=== PATIENT | female | born 1995 | race Caucasian/White ===

== ENCOUNTER 2017-09-25 18:44 | Emergency (ER) | payer OTHER ==
[2017-09-25] MEDS ORDERED: Ondansetron ODT 4 MG TAB ONE (19:43)
[2017-09-25 20:17] LABS: Hemoglobin 13.5 g/dL (12.0-16.0); Mean Corpuscular HGB CONC 34.1 g/dL (32.0-36.0); Mean Corpuscular Hemoglobin 35.8 pg (27.0-31.0); Mean Platelet Volume 9.3 fL (7.4-10.4); Platelet Count 100 thou/uL (130-400); RBC Distribution Width 14.2 % (11.5-14.5); Red Blood Cell (RBC) Count 3.77 mill/uL (4.20-5.40); White Blood Cell (WBC) Count 4.8 thou/uL (4.8-10.8)
[2017-09-25 20:23] LABS: Anion Gap 16 mmol/L (10-20); BUN (Urea Nitrogen) 9 mg/dL (7.0-18.7); Calc. Creatinine Clearance 0 mL/min (70-130); Calcium 10.4 mg/dL (7.8-10.44); Carbon Dioxide 26 mmol/L (22-29); Chloride 102 mmol/L (98-107); Estimated GFR-MDRD Greater than 90; Glucose 109 mg/dL (70-105); Sodium 140 mmol/L (136-145)
[2017-09-25 20:34] LABS: #Lymphocytes 0.8 thou/uL (1.20-3.40); #Monocytes 0.2 thou/uL (0.11-0.59); #Neutrophils 3.8 thou/uL (1.40-6.50); %Basophils 0.7 % (0.0-1.0); %Eosinophils 0.1 % (0.0-10.0); %Lymphocytes 16.6 % (21.0-51.0); %Monocytes 4.1 % (0.0-10.0); %Neutrophils 78.4 % (42.0-75.0); MDiff Complete? YES; Macrocytosis SLIGHT = 6-15 cells (100X) (0-5/hpf); PLT Morphology Comment Appears Decreased
[2017-09-25] MEDS ORDERED: Albuterol Sulfate 1.25 MG/3 ML NEB ONE ×2 (20:48→20:49)
[2017-09-25] MEDS ORDERED: Lorazepam 2 MG/ML VIAL ONE (21:00)
--- NOTE | 2017-09-25 23:35 | RAD ---
PORTABLE CHEST 09/25/17 An AP portable film at 2100 is compared with a 07/18/15 study. The patient is turned significantly which partially obscures portions of the lungs. There is some cary ear streaking in the left base that is most likely atelectasis. In the right breast there seems to be a little more density than usual. I cannot exclude an infiltrate here. The heart is probably normal in size given the body habitus and obliquity of the film. A tracheostomy tube is in place as usual. IMPRESSION: 1. Linear streaking left base, most likely atelectasis. 2. Question of extra increased density in right base. Cannot exclude a developing infiltrate on the right side, so the right lung is not seen optimally due to positioning. Code T POS: HOME
--- NOTE | 2017-09-25 23:37 | RAD ---
ABDOMEN ONE VIEW 09/25/17 A single film is provided. There is a very large amount of fecal material in the colon, especially th e left colon. While there is some mild gaseous distention of the splenic flexure, overall, the bowel does not appear overtly obstructed. A large density is seen in and just above the pelvis and to the right of midline. This might be a dis tended urinary bladder. Other studies would be needed to confirm it. 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 IMPRESSION: 1. Significant constipation. 2. Possible distention of the urinary bladder. POS: HOME
== END 2017-09-26 00:20 | disposition short-term general hospital (02) ==
LOC: BURERS 18:44
DX: G40.919 Epilepsy, unspecified, intractable, without status epilepticus (principal); Z79.899 Other long term (current) drug therapy
CPT/HCPCS: 71010; 74000; 80048; 80185; 85025; 96361; 96374; J2060; Q0162

== ENCOUNTER 2019-07-23 09:37 | Emergency (ER) | payer OTHER ==
[2019-07-23] MEDS ORDERED: Albuterol Sulfate 2.5 mg/3 ml Neb ONE (10:00)
[2019-07-23 10:19] LABS: #Eosinphils 0.3 thou/uL (0.0-0.7); #Lymphocytes 0.4 thou/uL (1.20-3.40); #Monocytes 0.4 thou/uL (0.11-0.59); #Neutrophils 4.7 thou/uL (1.40-6.50); %Basophils 0.5 % (0.0-1.0); %Eosinophils 5.3 % (0.0-10.0); %Lymphocytes 7.6 % (21.0-51.0); %Neutrophils 80.6 % (42.0-75.0); Hemoglobin 12.9 g/dL (12.0-16.0); Mean Corpuscular HGB CONC 33.5 g/dL (32.0-36.0); Mean Corpuscular Hemoglobin 32.9 pg (27.0-31.0); Mean Corpuscular Volume 98.4 fL (78.0-98.0); Mean Platelet Volume 7.1 fL (7.4-10.4); Platelet Count 127 thou/uL (130-400); RBC Distribution Width 14.5 % (11.5-14.5); Red Blood Cell (RBC) Count 3.91 mill/uL (4.20-5.40); White Blood Cell (WBC) Count 5.8 thou/uL (4.8-10.8)
[2019-07-23 10:31] LABS: ALT (SGPT) 80 U/L (8-55); AST (SGOT) 63 U/L (5-34); Alkaline Phosphatase 328 U/L (40-150); Anion Gap 13 mmol/L (10-20); BUN (Urea Nitrogen) 7 mg/dL (7.0-18.7); Bilirubin, Total 0.4 mg/dL (0.2-1.2); Calc. Creatinine Clearance 0 mL/min (70-130); Calcium 10.1 mg/dL (7.8-10.44); Carbon Dioxide 28 mmol/L (22-29); Chloride 104 mmol/L (98-107); Estimated GFR-MDRD Greater than 90; Glucose 121 mg/dL (70-105); Potassium 3.8 mmol/L (3.5-5.1); Sodium 141 mmol/L (136-145)
[2019-07-23] MEDS ORDERED: Lidocaine 1% PF 5 ML VIAL ONE (11:00)
[2019-07-23] MEDS ORDERED: Dexamethasone 4 mg/ml Vial ONE (11:00)
[2019-07-23] MEDS ORDERED: cefTRIAXone\\ROCEPHIN 1 GM VIAL ONE (11:00)
--- NOTE | 2019-07-23 16:38 | RAD ---
PORTABLE CHEST: Date: 07-23-19 An AP portable film at 1026 is compared with an 09-25-17 study. FINDINGS: Due to the patient's scoliosis, it is difficult to see all portions of the right lung well. The left lung is clear. No infiltrate is seen there. As best as I can tell, there is no acute infiltrate in th e right lung. Prominence of the right hilum is fairly typical in this patient as in part due to the s coliosis. The tracheostomy tube remains in place. The cardiac size is stable. IMPRESSION: No definite acute findings. POS: HOME
== END 2019-07-23 11:28 | disposition home or self-care (01) ==
LOC: BURERS 09:37
DX: J06.9 Acute upper respiratory infection, unspecified (principal); R06.2 Wheezing; Z79.899 Other long term (current) drug therapy; Z79.51 Long term (current) use of inhaled steroids
CPT/HCPCS: 36415; 71045; 80053; 83605; 85025; 94640; 94760; 96372; J0696; J1100; J2001; J7611